=== PATIENT | female | born 1970 | race Caucasian/White ===

== ENCOUNTER 2021-09-03 11:20 | Outpatient (REF) | payer BC, SELFPAY ==
[2021-09-03 13:21] LABS: Appearance Urine CLEAR; Color Urine YELLOW; Glucose Urine UA 100 MG/DL (NEG); Leukocyte Esterase Urine NEG (NEG); Nitrite Urine NEG (NEG); Specific Gravity - Urine 1.025 (1.005-1.025); UACC Culture Trigger NO; Urine Blood TRACE (NEG); Urine Ketones 15 MG/DL (NEG); Urine Protein NEG (NEG-TRACE)
[2021-09-03 13:51] LABS: Bacteria Urine 1+ /LPF; Squamous Epithelial Cell Urine 2+ /LPF; WBC Urine 0 /HPF (0-4)
== END 2021-09-03 11:21 | disposition home or self-care (01) ==
LOC: HO.MANLDS 11:20
PROVIDERS: PCP Physician Assistant; Visit Provider Physician Assistant
DX: R30.0 Dysuria (principal)
CPT/HCPCS: 81001

== ENCOUNTER → 2022-05-20 15:12 | Outpatient (BNV) | payer BC, OTHER, SELFPAY | PROVIDERS: PCP Internal Medicine; Visit Provider Internal Medicine | DX: Z86.711 Personal history of pulmonary embolism (principal); Z86.718 Personal history of other venous thrombosis and embolism; D68.51 Activated protein C resistance; Z79.01 Long term (current) use of anticoagulants | CPT/HCPCS: 99204; 99213; 99214 ==

== ENCOUNTER 2023-07-01 16:16 | Outpatient (REF) | payer BC, SELFPAY ==
[2023-07-01 18:05] LABS: Estimated Average Glucose 134 mg/dL; Hemoglobin A1c % 6.3 % (<6.0)
== END 2023-07-01 16:17 | disposition home or self-care (01) ==
LOC: HO.MANLDS 16:16
PROVIDERS: Visit Provider Internal Medicine
DX: E11.9 Type 2 diabetes mellitus without complications (principal)
CPT/HCPCS: 36415; 83036

== ENCOUNTER 2024-02-08 13:16 | Outpatient (REF) | payer OTHER, SELFPAY ==
[2024-02-09 05:55] LABS: Estimated Average Glucose 212 mg/dL; Hemoglobin A1C 239.3281 umol/L; Total Hemoglobin (HGBA1C) 3185.0849 umol/L
== END 2024-02-08 13:17 | disposition home or self-care (01) ==
LOC: HO.MANLDS 13:16
PROVIDERS: Visit Provider Internal Medicine
DX: E11.9 Type 2 diabetes mellitus without complications (principal)
CPT/HCPCS: 36415; 83036